=== PATIENT | female | born 1975 | race Caucasian/White ===

== ENCOUNTER → 2016-11-06 | Outpatient (CLI) | payer MEDICAID | END | disposition home or self-care (01) | LOC: RAD 10:32 | PROVIDERS: ATTEND Physician Assistant | DX: K21.9 Gastro-esophageal reflux disease without esophagitis (principal); B18.2 Chronic viral hepatitis C; Z90.49 Acquired absence of other specified parts of digestive tract | CPT/HCPCS: 74241; 76700 ==

== ENCOUNTER 2019-01-01 12:29 | Emergency (ER) | payer MEDICAID, OTHER ==
[~2019-01-01] VITALS: Ht 172.7 cm; Wt 107.0 kg
[2019-01-01] MEDS ORDERED: LISI-167 PO (12:55)
[2019-01-01] MEDS ORDERED: PANT20TA2 PO (12:55)
[2019-01-01] MEDS ORDERED: imitrex (12:55)
[2019-01-01] MEDS ORDERED: GLIP10TA13 PO (12:55)
[2019-01-01] MEDS ORDERED: lovastatin (12:55)
[2019-01-01] MEDS ORDERED: METF500T17 PO (12:55)
--- NOTE | 2019-01-01 13:07 | NUR ---
PT TO ED FOR SYNCOPAL EVENT YESTERDAY DURING CONCERT. PT REPORTS PAIN TO RIGHT ANKLE AND LEFT KNEE. DENIES CP OR SOB. PT ALSO STATES ABNORMAL MENSTRUAL BLEEDING. LMP OCTOBER 2018. PT REPORTS HAS BEEN BLEEDING FOR 3 WEEKS AND SATURATES 2 TAMPONS PER HOUR. CONNECTED TO MONITORS. MILD TACHYCARDIA 90S-100S, ALL OTHER VSS ON TA. EDPA TO BS FOR ASSESSMENT AND ORDERS RECEIVED. EKG COMPLETE. LABS DRAWN. PT TO XR AT THIS TIME. AWAITING RESULTS.
[2019-01-01 13:13] LABS: BASOPHILS # (AUTO) 0.03 x10^3/uL (0-0.1); BASOPHILS % (AUTO) 0 % (0-1); EOSINOPHILS # (AUTO) 0.12 x10^3/uL (0-0.4); EOSINOPHILS % (AUTO) 1 % (1-7); LYMPHOCYTES # (AUTO) 2.11 x10^3/uL (1-3.4); LYMPHOCYTES % (AUTO) 21 % (22-44); MD NO; MEAN CORPUSCULAR HEMOGLOBIN 23.6 pg (27.0-34.8); MEAN CORPUSCULAR HGB CONC 30.9 g/dL (32.4-35.8); MEAN CORPUSCULAR VOLUME 76.4 fL (80-100); MEAN PLATELET VOLUME 8.2 fL (7.4-10.4); MONOCYTES % (AUTO) 10 % (2-9); NEUTROPHILS # (AUTO) 7.07 x10^3/uL (1.8-6.8); NEUTROPHILS % (AUTO) 69 % (42-75); PLATELET COUNT 409 x10^3/uL (130-400); RED BLOOD COUNT 3.52 x10^6/uL (3.82-5.3); RED CELL DISTRIBUTION WIDTH 17.6 % (9.6-15.2)
[2019-01-01 13:26] LABS: CALCIUM 8.5 mg/dL (8.5-10.1); CHLORIDE 108 mmol/L (98-107)
[2019-01-01 13:39] LABS: ANION GAP 4 mmol/L (5-15); CREATININE 1.06 mg/dL (0.55-1.02)
--- NOTE | 2019-01-01 14:15 | NUR ---
pt back from imaging. vss. pt resting in room. no needs expressed. awaiting results.
--- NOTE | 2019-01-01 14:34 | NUR ---
all results back at this time. chart upfor recheck.
--- NOTE | 2019-01-01 14:49 | NUR ---
PT RESTING IN ROOM WITH FAMILY AT BS. VSS. NO NEEDS EXPRESSED. AWAITING DECK SCALER CONSULT.
[2019-01-01 15:01] VITALS: BP 101/69
== END 2019-01-01 15:31 | disposition home or self-care (01) ==
LOC: ED 14:21
DX: S93.401A Sprain of unspecified ligament of right ankle, initial encounter (principal); S83.92XA Sprain of unspecified site of left knee, initial encounter; R55 Syncope and collapse; D62 Acute posthemorrhagic anemia; N92.4 Excessive bleeding in the premenopausal period; N93.8 Other specified abnormal uterine and vaginal bleeding; K21.9 Gastro-esophageal reflux disease without esophagitis; I10 Essential (primary) hypertension; E78.5 Hyperlipidemia, unspecified; E11.9 Type 2 diabetes mellitus without complications; Z90.49 Acquired absence of other specified parts of digestive tract; Z88.5 Allergy status to narcotic agent; X58.XXXA Exposure to other specified factors, initial encounter; Y93.89 Activity, other specified; Y92.89 Other specified places as the place of occurrence of the external cause; Y99.8 Other external cause status
CPT/HCPCS: 36415; 76830; 80048; 84703; 85025; 93005; 99284